=== PATIENT | female | born 1965 | race Two or more races ===

== ENCOUNTER → 2017-04-11 | Outpatient (CLI) | payer OTHER ==
--- NOTE | ~2017-04-11 | MY29 ---
[facility] A Service of [facility] RADIOLOGY TEXT RESULTS PATIENT: PEARL JUAREZ LOCATION: [facility] : 63 UNIT #: [id number] AGE: [address]: Vincent Geiger MD SEX: F ORDER DR: [id number] [facility] [address] [place], [place] [address] [id number] O MR#: [id number] Acc #: [id number] NAME: PEARL JUAREZ : 1965 SEX: F STUDY DATE/TIME: 04/11/2017 10:19 UNIT: [facility] ROOM: STUDY DESCRIPTION: MY [facility] SCREENING W/ CAD BILAT Attending Physician: Vincent Geiger M.D. Ordering Physician: Vincent Geiger M.D. Primary Care Physician: Vincent Geiger M.D. MEDICAL IMAGING REPORT This report is preliminary unless electronic signature is present EXAM Bilateral digital screening mammogram with CAD. HISTORY Routine screening. COMPARISON Screening mammogram, 12/20/2015. FINDINGS There are scattered fibroglandular tissues. No suspicious findings are present. IMPRESSION No mammographic evidence of malignancy. Annual screening mammography and clinical breast exam are recommended. A result letter will be sent to the patient. Patients over the age of 40 are entered into a reminder system with target due date for the next mammogram. BIRADS: 1 Negative Dictated by... Sydney Tanner M.D. THIS IS AN ELECTRONICALLY VERIFIED REPORT Sydney Tanner M.D. at 04/22/2017 3:54 PM JEAN-PIERRE/elsa [facility] A Service of [facility] RADIOLOGY TEXT RESULTS PATIENT: PEARL JUAREZ LOCATION: [facility] : 63 UNIT #: [id number] AGE: [address]: Vincent Geiger MD SEX: F ORDER DR: TD: 04/11/2017 18:32 JOB #: [id number] MEDICAL IMAGING REPORT Page 1 of 1 COPY
== END | disposition home or self-care (01) ==
LOC: CWCC 08:45
DX: Z12.31 Encounter for screening mammogram for malignant neoplasm of breast (principal)
CPT/HCPCS: G0202